=== PATIENT | male | born 1955 | race African-American/Black ===

== ENCOUNTER 2016-10-12 15:41 | Inpatient (IN) | payer OTHER ==
[2016-10-12 17:56] VITALS: BMI 30.8
--- NOTE | 2016-10-12 19:38 | HP ---
Admission ROS [facility] Chief Complaint: SEEKING REHAB SERVICES FOR ALCOHOL DEPENDENCE Allergies/Adverse Reactions: Allergies Allergy/AdvReac Type Severity Reaction Status Date / Time No Known Allergies Allergy Verified 10/12/16 18:31 History of Present Illness: 61 Y.O. MAN WITH A HISTORY OF ALCOHOL DEPENDENCE IS HERE SEEKING REHAB SERVICES. HE COMPLETED DETOX TODAY AT [facility]. HE REPORTS HE DOES NOT HAVE A SIGNIFICANT PERIOD OF SOBRIETY. Exam Limitations: No Limitations - Ebola screening Have you traveled outside of the country in the last 21 days: No Have you had contact with anyone from an Ebola affected area: No Have you been sick,other than usual withdrawal symptoms: No Do you have a fever: No - Review of Systems Constitutional: Loss of Appetite, Night Sweats EENT: reports: Blurred Vision Respiratory: reports: No Symptoms reported Cardiac: reports: No Symptoms Reported GI: reports: No Symptoms Reported : reports: No Symptoms Reported Musculoskeletal: reports: Back Pain Integumentary: reports: No Symptoms Reported Neuro: reports: Seizure (ETOH RELATED IN 2009) Endocrine: reports: No Symptoms Reported Hematology: reports: Other (SICKLE CELL TRAIT) Psychiatric: reports: Judgement Intact, Mood/Affect Appropiate Other Systems: Reviewed and Negative Patient History - Patient Medical History Hx Anemia: No Hx Asthma: No Hx Chronic Obstructive Pulmonary Disease (COPD): No Hx Cancer: No Hx Cardiac Disorders: No Hx Congestive Heart Failure: No Hx Hypertension: Yes Hx Hypercholesterolemia: No Hx Pacemaker: No HX Cerebrovascular Accident: No Hx Seizures: Yes (ETOH RELATED-2009) Hx Dementia: No Hx Diabetes: Yes (TYPE 2) Hx Gastrointestinal Disorders: No Hx Liver Disease: No Hx Genitourinary Disorders: No Hx Sexually Transmitted Disorders: No Hx Renal Disease (ESRD): No Hx Thyroid Disease: No Hx Human Immunodeficiency Virus (HIV): No (NEGATIVE HX 2013) Hx Hepatitis C: No Hx Depression: Yes Hx Suicide Attempt: No Hx Bipolar Disorder: No Hx Schizophrenia: No - Patient Surgical History Past Surgical History: No Hx Neurologic Surgery: No Hx Cataract Extraction: No Hx Cardiac Surgery: No Hx Lung Surgery: No Hx Breast Surgery: No Hx Breast Biopsy: No Hx Abdominal Surgery: No Hx Appendectomy: No Hx Cholecystectomy: No Hx Genitourinary Surgery: No Hx Section: No Hx Orthopedic Surgery: No Anesthesia Reaction: No - PPD History Documented Results: Positive w/o proof PPD to be Administered?: No - Reproductive History Patient is a Female of Child Bearing Age (11 -55 yrs old): No - Smoking Cessation Smoking history: Current every day smoker Have you smoked in the past 12 months: Yes Aproximately how many cigarettes per day: 3 Cigars Per Day: 0 Hx Chewing Tobacco Use: No Initiated information on smoking cessation: Yes 'Breaking Loose' booklet given: 10/12/16 - Substance & Tx. History Hx Alcohol Use: Yes Hx Substance Use: No Substance Use Type: Alcohol Hx Substance Use Treatment: Yes (COMPLETED DETOX AT OTHER FACILITY 09/2016; LAST REHAB WAS HERE IN 01/2016) - Substances Abused Alcohol Route: Oral Frequency: Daily Amount used: 2 PINTS OF LIQUOR AND 6 PACK OF BEER Age of first use: 13 Date of Last Use: 10/07/16 Family Disease History - Family Disease History Family Disease History: Other: Father (alcohol,), Mother (HTN), Sister ( alcohol) Admission Physical Exam [facility] - Vital Signs Vital Signs: Vital Signs - 24 hr 10/12/16 17:54 Temperature 98.2 F Pulse Rate 86 Respiratory 20 Rate Blood Pressure 141/73 - Physical General Appearance: Yes: Sweating, Anxious HEENTM: Yes: Normocephalic, Normal Voice Respiratory: Yes: Chest Non-Tender, Lungs Clear, Normal Breath Sounds, No Respiratory Distress, No Accessory Muscle Use Neck: Yes: No masses,lesions,Nodules, Trachea in good position Breast: Yes: Breast Exam Deferred Cardiology: Yes: Regular Rhythm, Regular Rate Abdominal: Yes: Non Tender, Flat, Soft Genitourinary: Yes: Other (NO COMPLAINTS REPORTED) Back: Yes: Normal Inspection Musculoskeletal: Yes: Gait Steady Extremities: Yes: Normal Inspection, Normal Range of Motion, Non-Tender Neurological: Yes: Alert, Normal Mood/Affect, Normal Response Integumentary: Yes: Normal Color, Dry, Warm Lymphatic: Yes: Within Normal Limits - Diagnostic (1) Seizure Current Visit: Yes Status: Chronic (2) Diabetes mellitus Current Visit: Yes Status: Chronic Qualifiers: Diabetes mellitus type: type 2 Diabetes mellitus complication status: without complication Diabetes mellitus building and grounds supervisor insulin use: without building and grounds supervisor use Qualified Code(s): E11.9 - Type 2 diabetes mellitus without complications (3) Nicotine dependence Current Visit: Yes Status: Chronic Qualifiers: (4) Alcohol dependence with uncomplicated withdrawal Current Visit: Yes Status: Chronic (5) History of positive PPD Current Visit: Yes Status: Chronic Cleared for Admission [facility] - Detox or Rehab [facility] Level of Care: Observation Bed Claeared for Rehab Admission: Yes [facility] Breath Alcohol Content Breath Alcohol Content: 0 Urine Drug Screen - Results Drug Screen Negative: No Urine Drug Screen Results: BZO-Benzodiazepines, TCA-Tricyclic Antidepress
[2016-10-12] MEDS ORDERED: hydrOXYzine PAMOATE 50 MG CAPSULE (FP) PO PRN (19:59)
[2016-10-12] MEDS ORDERED: diphenhydrAMINE HCL 50 MG CAPSULE PO PRN (19:59)
[2016-10-12] MEDS ORDERED: ACETAMINOPHEN 325 MG TABLET (FP) PO PRN (19:59)
[2016-10-12] MEDS ORDERED: MENTHOL/PHENOL 1 EACH UD MM PRN (19:59)
[2016-10-12] MEDS ORDERED: guaiFENesin/D-METHORPHAN HB 10 ML UNIT-DOSE CUPS PO PRN (19:59)
[2016-10-12] MEDS ORDERED: LOPERAMIDE HCL 2 MG CAPSULE PO PRN (19:59)
[2016-10-12] MEDS ORDERED: MAGNESIUM CITRATE 300 ML BOTTLE PO PRN (19:59)
[2016-10-12] MEDS ORDERED: MAGNESIUM HYDROX 2400MG/30ML ORAL SUSPENSION 30 ML CUP PO PRN (19:59)
[2016-10-12] MEDS ORDERED: P-EPHED 60MG/TRIPROLIDI 2.5MG TABLET PO PRN (19:59)
[2016-10-12] MEDS ORDERED: IBUPROFEN 400 MG TABLET (FP) PO PRN (19:59)
[2016-10-12] MEDS: THIAMINE HCL 100 MG TABLET (FP) PO SCH (21:32)
[2016-10-12 22:59] LABS: URINE APPEARANCE CLEAR; URINE BILIRUBIN NEGATIVE (NEGATIVE); URINE BLOOD NEGATIVE (NEGATIVE); URINE COLOR YELLOW; URINE GLUCOSE (UA) NEGATIVE (NEGATIVE); URINE KETONE NEGATIVE (NEGATIVE); URINE NITRITE NEGATIVE (NEGATIVE); URINE PROTEIN NEGATIVE (NEGATIVE); URINE UROBILINOGEN NEGATIVE mg/dL (0.2-1.0)
[2016-10-12 23:12] LABS: URINE LEUK ESTERASE TRACE (NEGATIVE)
[2016-10-12 23:22] LABS: URINE MUCUS RARE; URINE RBC 2 /hpf (0-3); URINE WBC 8 /hpf (3-5)
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
[2016-10-13] MEDS: metFORMIN HCL 500 MG TABLET (FP) PO SCH ×2 (07:04→16:49)
[2016-10-13] MEDS: amLODIPine BESYLATE 5 MG TABLET (FP) PO SCH (09:50)
[2016-10-13] MEDS: PRENATAL VITAMINS W/ FOLIC ACID TABLET (FP) PO SCH (09:50)
[2016-10-13 15:23] LABS: MCH 23.2 pg (25.7-33.7); MCHC 31.1 g/dl (32.0-35.9); MEAN CELL VOLUME 74.8 fl (80-96); MEAN PLT VOLUME 9.1 fl (7.5-11.1); PLATELET COUNT 315 K/MM3 (134-434); WHITE BLOOD COUNT 6.1 K/mm3 (4.0-10.0)
[2016-10-13 15:27] LABS: ALBUMIN 4.1 g/dl (3.4-5.0); ANION GAP 9 (8-16); CALCIUM 9.9 mg/dL (8.5-10.1); CO2 28 mmol/L (21-32); CREATININE 1.1 mg/dL (0.7-1.3); GLUCOSE,RANDOM 136 mg/dL (74-106); SGOT/AST 24 U/L (15-37); SGPT/ALT 28 U/L (12-78)
[2016-10-13 15:29] LABS: ALK PHOS 76 U/L (45-117); BILIRUBIN,TOTAL 0.4 mg/dL (0.2-1.0); TOT PROT 8.1 g/dl (6.4-8.2)
[2016-10-13] MEDS: THIAMINE HCL 100 MG TABLET (FP) PO SCH (21:20)
[2016-10-13] MEDS: diphenhydrAMINE HCL 50 MG CAPSULE PO SCH (21:21)
[2016-10-14] MEDS: metFORMIN HCL 500 MG TABLET (FP) PO SCH ×2 (06:12→17:00)
[2016-10-14] MEDS: PRENATAL VITAMINS W/ FOLIC ACID TABLET (FP) PO SCH (09:39)
[2016-10-14] MEDS: LISINOPRIL 5 MG TABLET (FP) PO SCH (09:40)
[2016-10-14] MEDS: amLODIPine BESYLATE 5 MG TABLET (FP) PO SCH (09:40)
--- NOTE | 2016-10-14 16:39 | EKG ---
Test Reason : Blood Pressure : / mmHG Vent. Rate : 082 BPM Atrial Rate : 082 BPM P-R Int : 162 ms QRS Dur : 096 ms QT Int : 366 ms P-R-T Axes : 025 -21 014 degrees QTc Int : 427 ms NORMAL SINUS RHYTHM INCOMPLETE RIGHT BUNDLE BRANCH BLOCK MODERATE VOLTAGE CRITERIA FOR LVH, MAY BE NORMAL VARIANT NONSPECIFIC T WAVE ABNORMALITY ABNORMAL ECG WHEN COMPARED WITH ECG OF 28-JAN-2016 17:17, CRITERIA FOR SEPTAL INFARCT ARE NO LONGER PRESENT NONSPECIFIC T WAVE ABNORMALITY NOW EVIDENT IN LATERAL LEADS Confirmed by SHIRLEY PINON MD ([id number]) on 10/14/2016 4:39:50 PM Referred By: Confirmed By:SHIRLEY PINON MD
[2016-10-14] MEDS: MAG HYDROX/AL HYDROX/SIMETH 30 ML UNIT-DOSE CUP PO PRN (18:42)
[2016-10-14] MEDS: THIAMINE HCL 100 MG TABLET (FP) PO SCH (22:23)
[2016-10-14] MEDS: diphenhydrAMINE HCL 50 MG CAPSULE PO SCH (22:23)
[2016-10-15] MEDS: metFORMIN HCL 500 MG TABLET (FP) PO SCH ×2 (05:59→16:55)
[2016-10-15] MEDS: PRENATAL VITAMINS W/ FOLIC ACID TABLET (FP) PO SCH (09:34)
[2016-10-15] MEDS: LISINOPRIL 5 MG TABLET (FP) PO SCH (09:34)
[2016-10-15] MEDS: amLODIPine BESYLATE 5 MG TABLET (FP) PO SCH (09:34)
[2016-10-15] MEDS: THIAMINE HCL 100 MG TABLET (FP) PO SCH (21:12)
[2016-10-15] MEDS: diphenhydrAMINE HCL 50 MG CAPSULE PO SCH (21:12)
[2016-10-15] MEDS: MAG HYDROX/AL HYDROX/SIMETH 30 ML UNIT-DOSE CUP PO PRN (23:13)
[2016-10-16] MEDS: metFORMIN HCL 500 MG TABLET (FP) PO SCH ×2 (06:31→16:46)
[2016-10-16] MEDS: amLODIPine BESYLATE 5 MG TABLET (FP) PO SCH (09:40)
[2016-10-16] MEDS: PRENATAL VITAMINS W/ FOLIC ACID TABLET (FP) PO SCH (09:40)
[2016-10-16] MEDS: LISINOPRIL 5 MG TABLET (FP) PO SCH (09:40)
[2016-10-16] MEDS: THIAMINE HCL 100 MG TABLET (FP) PO SCH (21:24)
[2016-10-16] MEDS: diphenhydrAMINE HCL 50 MG CAPSULE PO SCH (21:24)
[2016-10-17] MEDS: metFORMIN HCL 500 MG TABLET (FP) PO SCH ×2 (07:03→17:00)
[2016-10-17] MEDS: amLODIPine BESYLATE 5 MG TABLET (FP) PO SCH (09:34)
[2016-10-17] MEDS: LISINOPRIL 5 MG TABLET (FP) PO SCH (09:34)
[2016-10-17] MEDS: PRENATAL VITAMINS W/ FOLIC ACID TABLET (FP) PO SCH (09:34)
[2016-10-17] MEDS: diphenhydrAMINE HCL 50 MG CAPSULE PO SCH (21:14)
[2016-10-17] MEDS: THIAMINE HCL 100 MG TABLET (FP) PO SCH (21:14)
[2016-10-18] MEDS: metFORMIN HCL 500 MG TABLET (FP) PO SCH ×2 (06:13→16:59)
[2016-10-18] MEDS: LISINOPRIL 5 MG TABLET (FP) PO SCH (09:26)
[2016-10-18] MEDS: PRENATAL VITAMINS W/ FOLIC ACID TABLET (FP) PO SCH (09:26)
[2016-10-18] MEDS: amLODIPine BESYLATE 5 MG TABLET (FP) PO SCH (09:26)
[2016-10-18] MEDS: diphenhydrAMINE HCL 50 MG CAPSULE PO SCH (21:30)
[2016-10-18] MEDS: THIAMINE HCL 100 MG TABLET (FP) PO SCH (21:30)
[2016-10-19] MEDS: metFORMIN HCL 500 MG TABLET (FP) PO SCH ×2 (06:16→17:20)
[2016-10-19] MEDS: amLODIPine BESYLATE 5 MG TABLET (FP) PO SCH (09:46)
[2016-10-19] MEDS: PRENATAL VITAMINS W/ FOLIC ACID TABLET (FP) PO SCH (09:46)
[2016-10-19] MEDS: LISINOPRIL 5 MG TABLET (FP) PO SCH (09:46)
[2016-10-19] MEDS: diphenhydrAMINE HCL 50 MG CAPSULE PO SCH (21:41)
[2016-10-19] MEDS: THIAMINE HCL 100 MG TABLET (FP) PO SCH (21:41)
[2016-10-20] MEDS: metFORMIN HCL 500 MG TABLET (FP) PO SCH ×2 (07:12→16:55)
[2016-10-20] MEDS: PRENATAL VITAMINS W/ FOLIC ACID TABLET (FP) PO SCH (09:45)
[2016-10-20] MEDS: amLODIPine BESYLATE 5 MG TABLET (FP) PO SCH (09:45)
[2016-10-20] MEDS: LISINOPRIL 5 MG TABLET (FP) PO SCH (09:45)
[2016-10-20] MEDS: MAG HYDROX/AL HYDROX/SIMETH 30 ML UNIT-DOSE CUP PO PRN (12:03)
[2016-10-20] MEDS: diphenhydrAMINE HCL 50 MG CAPSULE PO SCH (21:49)
[2016-10-20] MEDS: THIAMINE HCL 100 MG TABLET (FP) PO SCH (21:49)
[2016-10-21] MEDS: metFORMIN HCL 500 MG TABLET (FP) PO SCH ×2 (07:43→16:55)
[2016-10-21] MEDS: amLODIPine BESYLATE 5 MG TABLET (FP) PO SCH (09:35)
[2016-10-21] MEDS: LISINOPRIL 5 MG TABLET (FP) PO SCH (09:35)
[2016-10-21] MEDS: PRENATAL VITAMINS W/ FOLIC ACID TABLET (FP) PO SCH (09:35)
[2016-10-21] MEDS: THIAMINE HCL 100 MG TABLET (FP) PO SCH (21:23)
[2016-10-21] MEDS: diphenhydrAMINE HCL 50 MG CAPSULE PO SCH (21:23)
[2016-10-22] MEDS: metFORMIN HCL 500 MG TABLET (FP) PO SCH ×2 (06:39→17:10)
[2016-10-22] MEDS: LISINOPRIL 5 MG TABLET (FP) PO SCH (10:28)
[2016-10-22] MEDS: PRENATAL VITAMINS W/ FOLIC ACID TABLET (FP) PO SCH (10:28)
[2016-10-22] MEDS: amLODIPine BESYLATE 5 MG TABLET (FP) PO SCH (10:28)
[2016-10-22] MEDS: THIAMINE HCL 100 MG TABLET (FP) PO SCH (22:04)
[2016-10-22] MEDS: diphenhydrAMINE HCL 50 MG CAPSULE PO SCH (22:04)
[2016-10-23] MEDS: metFORMIN HCL 500 MG TABLET (FP) PO SCH ×2 (06:49→17:28)
[2016-10-23] MEDS: LISINOPRIL 5 MG TABLET (FP) PO SCH (09:55)
[2016-10-23] MEDS: PRENATAL VITAMINS W/ FOLIC ACID TABLET (FP) PO SCH (09:55)
[2016-10-23] MEDS: amLODIPine BESYLATE 5 MG TABLET (FP) PO SCH (09:55)
[2016-10-23] MEDS: THIAMINE HCL 100 MG TABLET (FP) PO SCH (22:00)
[2016-10-23] MEDS: diphenhydrAMINE HCL 50 MG CAPSULE PO SCH (22:50)
[2016-10-24] MEDS: metFORMIN HCL 500 MG TABLET (FP) PO SCH ×2 (06:07→17:34)
[2016-10-24] MEDS: LISINOPRIL 5 MG TABLET (FP) PO SCH (09:36)
[2016-10-24] MEDS: PRENATAL VITAMINS W/ FOLIC ACID TABLET (FP) PO SCH (09:36)
[2016-10-24] MEDS: amLODIPine BESYLATE 5 MG TABLET (FP) PO SCH (09:36)
[2016-10-24] MEDS: diphenhydrAMINE HCL 50 MG CAPSULE PO SCH (22:36)
[2016-10-24] MEDS: THIAMINE HCL 100 MG TABLET (FP) PO SCH (22:37)
[2016-10-25] MEDS: metFORMIN HCL 500 MG TABLET (FP) PO SCH ×2 (07:37→16:48)
[2016-10-25] MEDS: PRENATAL VITAMINS W/ FOLIC ACID TABLET (FP) PO SCH (09:47)
[2016-10-25] MEDS: LISINOPRIL 5 MG TABLET (FP) PO SCH (09:47)
[2016-10-25] MEDS: amLODIPine BESYLATE 5 MG TABLET (FP) PO SCH (09:47)
[2016-10-25] MEDS: diphenhydrAMINE HCL 50 MG CAPSULE PO SCH (21:24)
[2016-10-25] MEDS: THIAMINE HCL 100 MG TABLET (FP) PO SCH (21:24)
[2016-10-26] MEDS: metFORMIN HCL 500 MG TABLET (FP) PO SCH ×2 (06:57→16:58)
--- NOTE | 2016-10-26 09:42 | PN ---
Psychiatric Progress Note Vital Signs: Vital Signs Period Temp Pulse Resp BP Sys/Green Pulse Ox Last 24 Hr 98.5 F 93-100 18-20 141-148/74-86 Current Medications: Active Medications Generic Name Dose Route Start Last Admin Trade Name Freq PRN Reason Stop Dose Admin Acetaminophen 650 mg 10/12/16 19:59 Tylenol - PO Q4H PRN PAIN Al Hydroxide/Mg Hydroxide 30 ml 10/12/16 19:59 10/20/16 12:03 Mylanta Oral Suspension - PO 30 ml Q6H PRN Administration DYSPEPSIA Amlodipine Besylate 5 mg 10/13/16 10:00 10/25/16 09:47 Norvasc - PO 5 mg DAILY MY Administration Diphenhydramine HCl 100 mg 10/13/16 22:00 10/25/16 21:24 Benadryl - PO 100 mg HS MY Administration Eucalyptus/Menthol/Phenol/Sorbitol 1 each 10/12/16 19:59 Cepastat Lozenge - MM Q4H PRN SORE THROAT Guaifenesin 10 ml 10/12/16 19:59 Robitussin Dm - PO Q6H PRN COUGH Hydroxyzine Pamoate 50 mg 10/12/16 19:59 Vistaril - PO Q4H PRN AGITATION Ibuprofen 400 mg 10/12/16 19:59 10/14/16 09:42 Motrin - PO 400 mg Q6H PRN Administration SEVERE PAIN Lisinopril 5 mg 10/14/16 10:00 10/25/16 09:47 Prinivil PO 5 mg DAILY MY Administration Loperamide HCl 4 mg 10/12/16 19:59 Imodium - PO Q6H PRN DIARRHEA Magnesium Citrate 300 ml 10/12/16 19:59 Citroma - PO Q48H PRN CONSTIPATION Magnesium Hydroxide 30 ml 10/12/16 19:59 Milk Of Magnesia - PO DAILY PRN CONSTIPATION Metformin HCl 500 mg 10/13/16 07:00 10/26/16 06:57 Glucophage - PO 500 mg BID@0700,1630 MY Administration Multivit/Folic Acid/Iron 1 tab 10/13/16 10:00 10/25/16 09:47 Vitamins (Sjr) - PO 1 tab DAILY MY Administration Pseudoephedrine/Triprolidine 1 combo 10/12/16 19:59 Actifed - PO TID PRN NASAL CONGESTION Thiamine HCl 100 mg 10/12/16 22:00 10/25/16 21:24 Vitamin B1 - PO 100 mg HS MY Administration Psychiatric Treatment Plan - Problem List (1) Alcohol dependence Current Visit: No (2) Nicotine dependence Current Visit: Yes Qualifiers: (3) Substance induced mood disorder Current Visit: Yes (4) Substance-induced sleep disorder Current Visit: Yes (5) Diabetes mellitus Current Visit: Yes Qualifiers: Diabetes mellitus type: type 2 Diabetes mellitus complication status: without complication Diabetes mellitus penitentiary insulin use: without penitentiary use Qualified Code(s): E11.9 - Type 2 diabetes mellitus without complications (6) History of positive PPD Current Visit: Yes (7) Gout attack Current Visit: No (8) Essential (primary) hypertension Current Visit: No Initial treatment plan: t
[2016-10-26] MEDS: amLODIPine BESYLATE 5 MG TABLET (FP) PO SCH (10:00)
[2016-10-26] MEDS: LISINOPRIL 5 MG TABLET (FP) PO SCH (10:00)
[2016-10-26] MEDS: PRENATAL VITAMINS W/ FOLIC ACID TABLET (FP) PO SCH (10:00)
[2016-10-26] MEDS: MAG HYDROX/AL HYDROX/SIMETH 30 ML UNIT-DOSE CUP PO PRN (16:59)
[2016-10-26] MEDS: diphenhydrAMINE HCL 50 MG CAPSULE PO SCH (21:43)
[2016-10-26] MEDS: THIAMINE HCL 100 MG TABLET (FP) PO SCH (21:43)
[2016-10-27] MEDS: metFORMIN HCL 500 MG TABLET (FP) PO SCH ×2 (07:42→17:03)
[2016-10-27] MEDS ORDERED: PT OWN MED DRAWER 7, Y5N ONE (09:08)
[2016-10-27] MEDS: amLODIPine BESYLATE 5 MG TABLET (FP) PO SCH (10:03)
[2016-10-27] MEDS: PRENATAL VITAMINS W/ FOLIC ACID TABLET (FP) PO SCH (10:03)
[2016-10-27] MEDS: LISINOPRIL 5 MG TABLET (FP) PO SCH (10:03)
[2016-10-27] MEDS: NALTREXONE HCL 50 MG TABLET PO SCH (13:05)
--- NOTE | 2016-10-27 13:35 | PN ---
Psychiatric Progress Note Vital Signs: Vital Signs Period Temp Pulse Resp BP Sys/Green Pulse Ox Last 24 Hr 97.7 F 92-94 20-20 136-157/78-79 Date of Session: 10/27/16 Chief Complaint:: Medication management HPI: Patient addressing Alcohol Dependence comorbid with Nicotine Dependence, Substance-Induced Mood Disorder and Substance-Induced Sleep Disorder ROS: DM, HTN ans +PPD Current Medications: Active Medications Generic Name Dose Route Start Last Admin Trade Name Freq PRN Reason Stop Dose Admin Acetaminophen 650 mg 10/12/16 19:59 Tylenol - PO Q4H PRN PAIN Al Hydroxide/Mg Hydroxide 30 ml 10/12/16 19:59 10/26/16 16:59 Mylanta Oral Suspension - PO 30 ml Q6H PRN Administration DYSPEPSIA Amlodipine Besylate 5 mg 10/13/16 10:00 10/27/16 10:03 Norvasc - PO 5 mg DAILY MY Administration Diphenhydramine HCl 100 mg 10/13/16 22:00 10/26/16 21:43 Benadryl - PO 100 mg HS MY Administration Eucalyptus/Menthol/Phenol/Sorbitol 1 each 10/12/16 19:59 Cepastat Lozenge - MM Q4H PRN SORE THROAT Guaifenesin 10 ml 10/12/16 19:59 Robitussin Dm - PO Q6H PRN COUGH Hydroxyzine Pamoate 50 mg 10/12/16 19:59 Vistaril - PO Q4H PRN AGITATION Ibuprofen 400 mg 10/12/16 19:59 10/14/16 09:42 Motrin - PO 400 mg Q6H PRN Administration SEVERE PAIN Lisinopril 5 mg 10/14/16 10:00 10/27/16 10:03 Prinivil PO 5 mg DAILY MY Administration Loperamide HCl 4 mg 10/12/16 19:59 Imodium - PO Q6H PRN DIARRHEA Magnesium Citrate 300 ml 10/12/16 19:59 Citroma - PO Q48H PRN CONSTIPATION Magnesium Hydroxide 30 ml 10/12/16 19:59 Milk Of Magnesia - PO DAILY PRN CONSTIPATION Metformin HCl 500 mg 10/13/16 07:00 10/27/16 07:42 Glucophage - PO 500 mg BID@0700,1630 MY Administration Naltrexone HCl 50 mg 10/27/16 12:45 10/27/16 13:05 Revia - PO 50 mg DAILY MY Administration Multivit/Folic Acid/Iron 1 tab 10/13/16 10:00 10/27/16 10:03 Vitamins (Sjr) - PO Not Given DAILY MY Pseudoephedrine/Triprolidine 1 combo 10/12/16 19:59 Actifed - PO TID PRN NASAL CONGESTION Thiamine HCl 100 mg 10/12/16 22:00 10/26/16 21:43 Vitamin B1 - PO 100 mg HS MY Administration Current Side Effect: No Lab tests ordered: Yes Lab tests reviewed: Yes Provider note:: Patient requests medication management to address craving for alcohol. The use of Naltrexone was that purpose as well as its adverse-effects were discussed with him. He agreed to try it. He was given a brochure with information containing information regarding use of Naltrxone for opoid and alcohol craving Total face to face time:: 25 Mental Status Exam - Mental Status Exam Alert and Oriented to: Time, Place, Person Cognitive Function: Fair Mood: Hopeful, Euthymic Affect: Appropriate Patient Behavior: Cooperative Speech Pattern: Clear Voice Loudness: Normal Thought Process: Intact, Goal Oriented Thought Disorder: Not Present Hallucinations: Denies Suicidal Ideation: Denies Insight/Judgement: Fair Sleep: Poorly Appetite: Good Muscle strength/Tone: Normal Gait/Station: Normal Psychiatric Treatment Plan - Problem List (1) Alcohol dependence Current Visit: No (2) Nicotine dependence Current Visit: Yes Qualifiers: (3) Substance induced mood disorder Current Visit: Yes (4) Substance-induced sleep disorder Current Visit: Yes (5) Diabetes mellitus Current Visit: Yes Qualifiers: Diabetes mellitus type: type 2 Diabetes mellitus complication status: without complication Diabetes mellitus group home insulin use: without group home use Qualified Code(s): E11.9 - Type 2 diabetes mellitus without complications (6) History of positive PPD Current Visit: Yes (7) Gout attack Current Visit: No (8) Essential (primary) hypertension Current Visit: No Initial treatment plan: 1) Start Naltrexone 50 mg po daily. 2) Monitor progress
[2016-10-27] MEDS: diphenhydrAMINE HCL 50 MG CAPSULE PO SCH (21:18)
[2016-10-27] MEDS: THIAMINE HCL 100 MG TABLET (FP) PO SCH (21:18)
[2016-10-28] MEDS: metFORMIN HCL 500 MG TABLET (FP) PO SCH ×2 (06:13→16:23)
[2016-10-28] MEDS: amLODIPine BESYLATE 5 MG TABLET (FP) PO SCH (10:01)
[2016-10-28] MEDS: NALTREXONE HCL 50 MG TABLET PO SCH (10:01)
[2016-10-28] MEDS: LISINOPRIL 5 MG TABLET (FP) PO SCH (10:01)
[2016-10-28] MEDS: PRENATAL VITAMINS W/ FOLIC ACID TABLET (FP) PO SCH (10:02)
[2016-10-28] MEDS: diphenhydrAMINE HCL 50 MG CAPSULE PO SCH (21:43)
[2016-10-28] MEDS: THIAMINE HCL 100 MG TABLET (FP) PO SCH (21:43)
[2016-10-29] MEDS: metFORMIN HCL 500 MG TABLET (FP) PO SCH ×2 (06:54→16:52)
[2016-10-29] MEDS: PRENATAL VITAMINS W/ FOLIC ACID TABLET (FP) PO SCH (09:32)
[2016-10-29] MEDS: amLODIPine BESYLATE 5 MG TABLET (FP) PO SCH (09:32)
[2016-10-29] MEDS: LISINOPRIL 5 MG TABLET (FP) PO SCH (09:32)
[2016-10-29] MEDS: NALTREXONE HCL 50 MG TABLET PO SCH (09:32)
[2016-10-29] MEDS: THIAMINE HCL 100 MG TABLET (FP) PO SCH (21:26)
[2016-10-29] MEDS: diphenhydrAMINE HCL 50 MG CAPSULE PO SCH (21:26)
[2016-10-30] MEDS: metFORMIN HCL 500 MG TABLET (FP) PO SCH ×2 (06:57→16:53)
[2016-10-30] MEDS: LISINOPRIL 5 MG TABLET (FP) PO SCH (09:42)
[2016-10-30] MEDS: PRENATAL VITAMINS W/ FOLIC ACID TABLET (FP) PO SCH (09:42)
[2016-10-30] MEDS: amLODIPine BESYLATE 5 MG TABLET (FP) PO SCH (09:42)
[2016-10-30] MEDS: NALTREXONE HCL 50 MG TABLET PO SCH (09:42)
--- NOTE | 2016-10-30 17:11 | PN ---
Psychiatric Progress Note Vital Signs: Vital Signs Period Temp Pulse Resp BP Sys/Green Pulse Ox Last 24 Hr 97.8 F-98.5 F 90-95 18-20 124-157/65-95 Date of Session: 10/30/16 Chief Complaint:: Follow up on medication management HPI: Patient addressing Alcohol Dependence comorbid with Nicotine Dependence, Substance-Induced Mood Disorder and Substance-Induced Sleep Disorder ROS: DM, HTN ans +PPD Current Medications: Active Medications Generic Name Dose Route Start Last Admin Trade Name Freq PRN Reason Stop Dose Admin Acetaminophen 650 mg 10/12/16 19:59 Tylenol - PO Q4H PRN PAIN Al Hydroxide/Mg Hydroxide 30 ml 10/12/16 19:59 10/26/16 16:59 Mylanta Oral Suspension - PO 30 ml Q6H PRN Administration DYSPEPSIA Amlodipine Besylate 5 mg 10/13/16 10:00 10/30/16 09:42 Norvasc - PO 5 mg DAILY MY Administration Diphenhydramine HCl 100 mg 10/13/16 22:00 10/29/16 21:26 Benadryl - PO 100 mg HS MY Administration Eucalyptus/Menthol/Phenol/Sorbitol 1 each 10/12/16 19:59 Cepastat Lozenge - MM Q4H PRN SORE THROAT Guaifenesin 10 ml 10/12/16 19:59 Robitussin Dm - PO Q6H PRN COUGH Hydroxyzine Pamoate 50 mg 10/12/16 19:59 Vistaril - PO Q4H PRN AGITATION Ibuprofen 400 mg 10/12/16 19:59 10/14/16 09:42 Motrin - PO 400 mg Q6H PRN Administration SEVERE PAIN Lisinopril 5 mg 10/14/16 10:00 10/30/16 09:42 Prinivil PO 5 mg DAILY MY Administration Loperamide HCl 4 mg 10/12/16 19:59 Imodium - PO Q6H PRN DIARRHEA Magnesium Citrate 300 ml 10/12/16 19:59 Citroma - PO Q48H PRN CONSTIPATION Magnesium Hydroxide 30 ml 10/12/16 19:59 Milk Of Magnesia - PO DAILY PRN CONSTIPATION Metformin HCl 500 mg 10/13/16 07:00 10/30/16 16:53 Glucophage - PO 500 mg BID@0700,1630 MY Administration Naltrexone HCl 50 mg 10/27/16 12:45 10/30/16 09:42 Revia - PO 50 mg DAILY MY Administration Multivit/Folic Acid/Iron 1 tab 10/13/16 10:00 10/30/16 09:42 Vitamins (Sjr) - PO 1 tab DAILY MY Administration Pseudoephedrine/Triprolidine 1 combo 10/12/16 19:59 Actifed - PO TID PRN NASAL CONGESTION Thiamine HCl 100 mg 10/12/16 22:00 10/29/16 21:26 Vitamin B1 - PO 100 mg HS MY Administration Current Side Effect: No Lab tests ordered: Yes Lab tests reviewed: Yes Provider note:: Patient was started on Naltrexone 50 mg po daily to address craving for alcohol. Reports doing well on med. Denies experiencing any adverse- effects Total face to face time:: 25 Mental Status Exam - Mental Status Exam Alert and Oriented to: Time, Place, Person Cognitive Function: Fair Patient Appearance: Well Groomed Mood: Hopeful, Euthymic Affect: Appropriate Patient Behavior: Cooperative Speech Pattern: Clear Voice Loudness: Normal Thought Process: Intact Thought Disorder: Not Present Hallucinations: Denies Suicidal Ideation: Denies Homicidal Ideation: Denies Insight/Judgement: Fair Sleep: Fair Appetite: Good Muscle strength/Tone: Normal Gait/Station: Normal Psychiatric Treatment Plan - Problem List (1) Alcohol dependence Current Visit: No (2) Nicotine dependence Current Visit: Yes Qualifiers: (3) Substance induced mood disorder Current Visit: Yes (4) Substance-induced sleep disorder Current Visit: Yes (5) Diabetes mellitus Current Visit: Yes Qualifiers: Diabetes mellitus type: type 2 Diabetes mellitus complication status: without complication Diabetes mellitus retirement insulin use: 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
[2016-10-30] MEDS: THIAMINE HCL 100 MG TABLET (FP) PO SCH (21:25)
[2016-10-30] MEDS: diphenhydrAMINE HCL 50 MG CAPSULE PO SCH (21:25)
[2016-10-31] MEDS: metFORMIN HCL 500 MG TABLET (FP) PO SCH ×2 (07:23→16:50)
[2016-10-31] MEDS: LISINOPRIL 5 MG TABLET (FP) PO SCH (10:08)
[2016-10-31] MEDS: NALTREXONE HCL 50 MG TABLET PO SCH (10:08)
[2016-10-31] MEDS: amLODIPine BESYLATE 5 MG TABLET (FP) PO SCH (10:09)
[2016-10-31] MEDS: PRENATAL VITAMINS W/ FOLIC ACID TABLET (FP) PO SCH (10:09)
[2016-10-31] MEDS: THIAMINE HCL 100 MG TABLET (FP) PO SCH (21:28)
[2016-10-31] MEDS: diphenhydrAMINE HCL 50 MG CAPSULE PO SCH (21:28)
[2016-11-01] MEDS: metFORMIN HCL 500 MG TABLET (FP) PO SCH (06:15)
--- NOTE | 2016-11-01 06:31 | PN ---
Psychiatric Progress Note Vital Signs: Vital Signs Period Temp Pulse Resp BP Sys/Green Pulse Ox Last 24 Hr 98.5 F 90-93 20-20 132-135/72-73 Date of Session: 11/01/16 Chief Complaint:: Discharge Note HPI: Patient addressing Alcohol Dependence comorbid with Nicotine Dependence, Substance-Induced Mood Disorder and Substance-Induced Sleep Disorder ROS: DM, HTN ans +PPD were medically managed Current Medications: Active Medications Generic Name Dose Route Start Last Admin Trade Name Freq PRN Reason Stop Dose Admin Acetaminophen 650 mg 10/12/16 19:59 Tylenol - PO Q4H PRN PAIN Al Hydroxide/Mg Hydroxide 30 ml 10/12/16 19:59 10/26/16 16:59 Mylanta Oral Suspension - PO 30 ml Q6H PRN Administration DYSPEPSIA Amlodipine Besylate 5 mg 10/13/16 10:00 10/31/16 10:09 Norvasc - PO 5 mg DAILY MY Administration Diphenhydramine HCl 100 mg 10/13/16 22:00 10/31/16 21:28 Benadryl - PO 100 mg HS MY Administration Eucalyptus/Menthol/Phenol/Sorbitol 1 each 10/12/16 19:59 Cepastat Lozenge - MM Q4H PRN SORE THROAT Guaifenesin 10 ml 10/12/16 19:59 Robitussin Dm - PO Q6H PRN COUGH Hydroxyzine Pamoate 50 mg 10/12/16 19:59 Vistaril - PO Q4H PRN AGITATION Ibuprofen 400 mg 10/12/16 19:59 10/14/16 09:42 Motrin - PO 400 mg Q6H PRN Administration SEVERE PAIN Lisinopril 5 mg 10/14/16 10:00 10/31/16 10:08 Prinivil PO 5 mg DAILY MY Administration Loperamide HCl 4 mg 10/12/16 19:59 Imodium - PO Q6H PRN DIARRHEA Magnesium Citrate 300 ml 10/12/16 19:59 Citroma - PO Q48H PRN CONSTIPATION Magnesium Hydroxide 30 ml 10/12/16 19:59 Milk Of Magnesia - PO DAILY PRN CONSTIPATION Metformin HCl 500 mg 10/13/16 07:00 11/01/16 06:15 Glucophage - PO 500 mg BID@0700,1630 MY Administration Naltrexone HCl 50 mg 10/27/16 12:45 08/06/17 10:08 Revia - PO 50 mg DAILY MY Administration Multivit/Folic Acid/Iron 1 tab 10/13/16 10:00 10/31/16 10:09 Vitamins (Sjr) - PO Not Given DAILY MY Pseudoephedrine/Triprolidine 1 combo 10/12/16 19:59 Actifed - PO TID PRN NASAL CONGESTION Thiamine HCl 100 mg 10/12/16 22:00 10/31/16 21:28 Vitamin B1 - PO 100 mg HS MY Administration Current Side Effect: No Lab tests ordered: Yes Lab tests reviewed: Yes Provider note:: Patient has completed this program today. He has met his treatment his goals and will continue to address his issues in outpatient at [facility]. Told documentation writer that from his participation in this program, he has learned the importance of establishing a sober support network in order to maintain abstinence. He responded well to Benadryl 100 mg po HS. Script for 30 days supply of that medication will be electronically transmitted to [facility] at [facility] [place] [id number]. He is stable for discharge on 11/01/16 Total face to face time:: 35 Mental Status Exam - Mental Status Exam Alert and Oriented to: Time, Place, Person Cognitive Function: Fair Mood: Hopeful, Euthymic Affect: Appropriate Patient Behavior: Cooperative Speech Pattern: Clear Voice Loudness: Normal Thought Process: Intact, Goal Oriented Thought Disorder: Not Present Hallucinations: Denies Suicidal Ideation: Denies Insight/Judgement: Fair Sleep: Fair Appetite: Good Muscle strength/Tone: Normal Gait/Station: Normal Psychiatric Treatment Plan - Problem List (2) Nicotine dependence Qualifiers: (5) Diabetes mellitus Qualifiers: Diabetes mellitus type: type 2 Diabetes mellitus complication status: without complication Diabetes mellitus shelter insulin use: without shelter use Qualified Code(s): E11.9 - Type 2 diabetes mellitus without complications (8) Essential (primary) hypertension Initial treatment plan: Patient will be discharged tomorrow and referred to [facility] for outpatient treatment
[2016-11-01 07:15] VITALS: TEMP 97.7
[2016-11-01 08:29] VITALS: BP 135/72; PULSE 99
[2016-11-01] MEDS: amLODIPine BESYLATE 5 MG TABLET (FP) PO SCH (09:01)
[2016-11-01] MEDS: LISINOPRIL 5 MG TABLET (FP) PO SCH (09:01)
[2016-11-01] MEDS: NALTREXONE HCL 50 MG TABLET PO SCH (09:01)
[2016-11-01] MEDS: PRENATAL VITAMINS W/ FOLIC ACID TABLET (FP) PO SCH (09:02)
== END 2016-11-01 09:15 | disposition home or self-care (01) | DRG 772 ==
LOC: YASAS 15:41 → Y3W 18:32
PROVIDERS: ADMIT Psychiatry & Neurology Psychiatry; ATTEND Psychiatry & Neurology Psychiatry
PROC: HZ42ZZZ Group Counseling for Substance Abuse Treatment, Cognitive-Behavioral (ICD-10-PCS; principal; 2016-10-12)
DX: F10.20 Alcohol dependence, uncomplicated (principal); F17.210 Nicotine dependence, cigarettes, uncomplicated; F19.24 Other psychoactive substance dependence with psychoactive substance-induced mood disorder; F19.282 Other psychoactive substance dependence with psychoactive substance-induced sleep disorder; E11.9 Type 2 diabetes mellitus without complications; I10 Essential (primary) hypertension; R76.11 Nonspecific reaction to tuberculin skin test without active tuberculosis; M10.9 Gout, unspecified; Z86.69 Personal history of other diseases of the nervous system and sense organs
CPT/HCPCS: 36415; 71020-TC; 80053; 81003; 81015; 85027; 86593; 93005; 93010

== ENCOUNTER 2018-10-24 14:35 | Inpatient (IN) | payer OTHER | END 2018-11-02 10:15 | disposition home or self-care (01) | LOC: Y5N 10-26 11:51 → YASAS 14:35 → Y5N 20:06 ==

== ENCOUNTER 2019-02-20 13:06 | Inpatient (IN) | payer OTHER ==
[2019-02-20 15:39] VITALS: BMI 31.9
--- NOTE | 2019-02-20 17:06 | HP ---
CIWA Score Nausea/Vomitin-No Nausea/No Vomiting Muscle Tremors: 4-Moderate,w/Arms Extend Anxiety: 0-No Anxiety, at Ease Agitation: 0-Normal Activity Paroxysmal Sweats: 1-Minimal Palms Moist Orientation: 1-Uncertain about Date Tacttile Disturbances: 0-None Auditory Disturbances: 0-None Visual Disturbances: 0-None Headache: 0-None Present CIWA-Ar Total Score: 6 - Admission Criteria OASAS Guidelines: Admission for Medically Managed Detox: Requires at least one of the followin. CIWA greater than 12 2. Seizures within the past 24 hours 3. Delirium tremens within the past 24 hours 4. Hallucinations within the past 24 hours 5. Acute intervention needed for co occurring medical disorder 6. Acute intervention needed for co occurring psychiatric disorder 7. Severe withdrawal that cannot be handled at a lower level of care (continued vomiting, continued diarrhea, abnormal vital signs) requiring intravenous medication and/or fluids 8. Admitting History and Physical - Smoking History Smoking history: Current every day smoker Have you smoked in the past 12 months: Yes Aproximately how many cigarettes per day: 3 - Alcohol/Substance Use Hx Alcohol Use: Yes Admission ROS S - HPI Allergies/Adverse Reactions: Allergies Allergy/AdvReac Type Severity Reaction Status Date / Time No Known Allergies Allergy Verified 02/20/19 15:32 History of Present Illness: pt here for rehab after completion of ETOH detox @ [facility], d/c today , has d/c paperwork indicating stay 02/12-02/19/19 . pt denies use of alcohol since d/c from facility . Exam Limitations: No Limitations - Ebola screening Have you traveled outside of the country in the last 21 days: No Have you had contact with anyone from an Ebola affected area: No Do you have a fever: No - Review of Systems Constitutional: No Symptoms Reported EENT: reports: No Symptoms Reported Respiratory: reports: No Symptoms reported Cardiac: reports: No Symptoms Reported GI: reports: No Symptoms Reported : reports: No Symptoms Reported Musculoskeletal: reports: Joint Pain (shoulder - right pain x several days , denies injuries " I have arthritis, I take Motrin ") Integumentary: reports: Other (zelda LE discoloration reports x many years .) Neuro: reports: No Symptoms reported Endocrine: reports: See HPI Psychiatric: reports: Orientated x3 Patient History - Patient Medical History Hx Anemia: No Hx Asthma: No Hx Chronic Obstructive Pulmonary Disease (COPD): No Hx Cancer: No Hx Cardiac Disorders: No Hx Congestive Heart Failure: No Hx Hypertension: Yes Hx Hypercholesterolemia: No Hx Pacemaker: No HX Cerebrovascular Accident: No Hx Seizures: Yes (No episode in over 7 years) Hx Dementia: No Hx Diabetes: Yes Hx Gastrointestinal Disorders: No Hx Liver Disease: No Hx Genitourinary Disorders: No Hx Sexually Transmitted Disorders: No Hx Renal Disease (ESRD): No Hx Thyroid Disease: No Hx Human Immunodeficiency Virus (HIV): No (NEGATIVE HX 2013) Hx Hepatitis C: No Hx Depression: No Hx Suicide Attempt: No Hx Bipolar Disorder: No Hx Schizophrenia: No - Patient Surgical History Past Surgical History: No Hx Neurologic Surgery: No Hx Cataract Extraction: No Hx Cardiac Surgery: No Hx Lung Surgery: No Hx Breast Surgery: No Hx Breast Biopsy: No Hx Abdominal Surgery: No Hx Appendectomy: No Hx Cholecystectomy: No Hx Genitourinary Surgery: No Hx Section: No Hx Orthopedic Surgery: No Anesthesia Reaction: No - Smoking Cessation Smoking history: Current every day smoker Have you smoked in the past 12 months: Yes Aproximately how many cigarettes per day: 3 Cigars Per Day: 0 Hx Chewing Tobacco Use: No Initiated information on smoking cessation: No - Substances abused Alcohol Substance route: Oral Frequency: Daily Amount used: 3 to 4 pints of vodka and 6 pack of 120z beer Age of first use: 13 Date of last use: 10/09/18 Marijuana/Hashish Substance route: Oral Frequency: 1-2 times per week Amount used: $30 Age of first use: 16 Date of last use: 09/24/18 Admission Physical Exam [facility] - Vital Signs Vital Signs: Vital Signs - 24 hr 02/20/19 15:30 Temperature 98.4 F Pulse Rate 111 H Respiratory 18 Rate Blood Pressure 197/95 H - Physical General Appearance: Yes: No Apparent Distress HEENTM: Yes: EOMI, Hearing grossly Normal, Normocephalic, Normal Voice, Other ( poor dentition, mnay missing teeth) Respiratory: Yes: Chest Non-Tender, Lungs Clear, Normal Breath Sounds, No Respiratory Distress, No Accessory Muscle Use Neck: Yes: No masses,lesions,Nodules, Trachea in good position Cardiology: Yes: Regular Rhythm, Regular Rate, S1, S2, Tachycardia Abdominal: Yes: Non Tender, Soft Extremities: Yes: Normal Range of Motion, Non-Tender, Tremors Neurological: Yes: Fully Oriented, Alert, Motor Strength 5/5 Integumentary: Yes: Warm - Diagnostic (1) Cannabis dependence Current Visit: Yes Status: Chronic (2) Alcohol dependence Current Visit: Yes Status: Chronic (3) Nicotine dependence Current Visit: Yes Status: Chronic Qualifiers: Nicotine product type: cigarettes Breathalyzer - Breathalyzer Breathalyzer: 0 Urine Drug Screen - Test Device Lot number: [id number] Expiration date: 10/25/20 - Control Is test valid?: Yes - Results Drug screen NEGATIVE: No Urine drug screen results: BZO-Benzodiazepines Inpatient Rehab Admission - Rehab Decision to Admit Inpatient rehab admission?: Yes - Initial Determination Are CD services needed?: Yes Free of communicable disease: Yes Not in need of hospitalization: Yes - Rehab Admission Criteria Previous failed treatment: No Poor recovery environment: No Comorbidities: No Lacks judgement: Yes Patient is meeting Inpatient Rehab admission criteria:: Yes
[2019-02-20] MEDS ORDERED: ACETAMINOPHEN 325 MG TABLET (FP) PO PRN (17:15)
[2019-02-20] MEDS ORDERED: LOPERAMIDE HCL 2 MG CAPSULE PO PRN (17:15)
[2019-02-20] MEDS ORDERED: MAG HYDROX/AL HYDROX/SIMETH 30 ML UNIT-DOSE CUP PO PRN (17:15)
[2019-02-20] MEDS ORDERED: MENTHOL/PHENOL 1 EACH UD MM PRN (17:15)
[2019-02-20] MEDS ORDERED: MAGNESIUM CITRATE 300 ML BOTTLE PO PRN (17:15)
[2019-02-20] MEDS ORDERED: MAGNESIUM HYDROX 2400MG/30ML ORAL SUSPENSION 30 ML CUP PO PRN (17:15)
[2019-02-20] MEDS ORDERED: P-EPHED 60MG/TRIPROLIDI 2.5MG TABLET PO PRN (17:15)
[2019-02-20] MEDS ORDERED: guaiFENesin 200 MG/10 ML 10 ML UNIT-DOSE CUPS PO PRN (17:15)
[2019-02-20] MEDS ORDERED: traZODone HCL 50 MG TABLET (FP) PO PRN (17:16)
[2019-02-20] MEDS ORDERED: METOPROLOL TARTRATE 25 MG TABLET (FP) PO ONE (18:00)
[2019-02-20] MEDS: metFORMIN HCL 500 MG TABLET (FP) PO SCH (18:35)
[2019-02-20] MEDS: ENALAPRIL MALEATE 10 MG TABLET (FP) PO SCH (21:46)
[2019-02-20] MEDS: THIAMINE HCL 100 MG TABLET (FP) PO SCH (21:46)
[2019-02-20] MEDS ORDERED: MELATONIN 5 MG TABLETS PO PRN (22:00)
[2019-02-21] MEDS: metFORMIN HCL 500 MG TABLET (FP) PO SCH ×2 (06:41→17:14)
[2019-02-21] MEDS: INSULIN SLIDING SCALE (NOVOLOG) 1 VIAL SQ SCH ×2 (06:42→17:14)
[2019-02-21 10:17] LABS: ALBUMIN 3.7 g/dl (3.4-5.0); BILIRUBIN,TOTAL 0.3 mg/dL (0.2-1); BLOOD UREA NITROGEN 23.1 mg/dL (7-18); CALCIUM 10.1 mg/dL (8.5-10.1); CREATININE 1.3 mg/dL (0.55-1.3); POTASSIUM 4.2 mmol/L (3.5-5.1)
[2019-02-21 10:36] LABS: HEMATOCRIT 34.5 % (35.4-49); HEMOGLOBIN 10.7 GM/dL (11.7-16.9); MCH 22.8 pg (25.7-33.7); MEAN CELL VOLUME 73.5 fl (80-96); MEAN PLT VOLUME 9.4 fl (7.5-11.1); PLATELET COUNT 295 K/MM3 (134-434); RBC 4.69 M/mm3 (4.00-5.60); WHITE BLOOD COUNT 6.9 K/mm3 (4.0-10.0)
[2019-02-21] MEDS: ENALAPRIL MALEATE 10 MG TABLET (FP) PO SCH ×2 (10:49→21:39)
[2019-02-21] MEDS: NIFEdipine E.R. 30 MG TABLET (FP) PO SCH (10:49)
[2019-02-21] MEDS: PRENATAL VITAMINS W/ FOLIC ACID TABLET (FP) PO SCH (10:49)
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
[2019-02-21 15:17] LABS: EPI CELLS 2.9 /HPF (0-5/HPF); HYALINE CASTS 9 /lpf (0-8); URINE APPEARANCE CLEAR; URINE BACTERIA 15.5 /hpf (NEGATIVE); URINE BILIRUBIN NEGATIVE (NEGATIVE); URINE COLOR YELLOW; URINE GLUCOSE (UA) TRACE (NEGATIVE); URINE KETONE NEGATIVE (NEGATIVE); URINE LEUK ESTERASE 1+ (NEGATIVE); URINE NITRITE NEGATIVE (NEGATIVE); URINE PROTEIN 2+ (NEGATIVE); URINE RBC 3 /hpf (0-4); URINE WBC 6 /hpf (0-5)
[2019-02-21] MEDS: traZODone HCL 100 MG TABLET (FP) PO SCH (21:38)
[2019-02-21] MEDS: THIAMINE HCL 100 MG TABLET (FP) PO SCH (21:39)
[2019-02-22] MEDS: metFORMIN HCL 500 MG TABLET (FP) PO SCH ×2 (06:57→16:53)
[2019-02-22] MEDS: INSULIN SLIDING SCALE (NOVOLOG) 1 VIAL SQ SCH ×2 (06:58→16:55)
[2019-02-22] MEDS: ENALAPRIL MALEATE 10 MG TABLET (FP) PO SCH ×2 (10:01→21:27)
[2019-02-22] MEDS: NIFEdipine E.R. 30 MG TABLET (FP) PO SCH (10:01)
[2019-02-22] MEDS: PRENATAL VITAMINS W/ FOLIC ACID TABLET (FP) PO SCH (10:01)
[2019-02-22] MEDS ORDERED: INSULIN (NOVOLOG) ASPART 100 UNITS/ML 10ML VIAL ONE (16:19)
[2019-02-22] MEDS: THIAMINE HCL 100 MG TABLET (FP) PO SCH (21:27)
[2019-02-22] MEDS: traZODone HCL 100 MG TABLET (FP) PO SCH (21:27)
[2019-02-23] MEDS: metFORMIN HCL 500 MG TABLET (FP) PO SCH ×2 (06:25→16:34)
[2019-02-23] MEDS ORDERED: INSULIN (NOVOLOG) ASPART 100 UNITS/ML 10ML VIAL ONE ×2 (06:28→16:34)
[2019-02-23] MEDS: INSULIN SLIDING SCALE (NOVOLOG) 1 VIAL SQ SCH ×2 (07:06→16:35)
[2019-02-23] MEDS: ENALAPRIL MALEATE 10 MG TABLET (FP) PO SCH ×2 (10:34→21:30)
[2019-02-23] MEDS: NIFEdipine E.R. 30 MG TABLET (FP) PO SCH (10:34)
[2019-02-23] MEDS: PRENATAL VITAMINS W/ FOLIC ACID TABLET (FP) PO SCH (10:34)
[2019-02-23] MEDS: THIAMINE HCL 100 MG TABLET (FP) PO SCH (21:30)
[2019-02-23] MEDS: traZODone HCL 100 MG TABLET (FP) PO SCH (21:30)
[2019-02-24] MEDS: INSULIN SLIDING SCALE (NOVOLOG) 1 VIAL SQ SCH ×2 (06:25→16:54)
[2019-02-24] MEDS: metFORMIN HCL 500 MG TABLET (FP) PO SCH ×2 (06:25→16:51)
[2019-02-24] MEDS: ENALAPRIL MALEATE 10 MG TABLET (FP) PO SCH ×2 (10:01→21:34)
[2019-02-24] MEDS: PRENATAL VITAMINS W/ FOLIC ACID TABLET (FP) PO SCH (10:01)
[2019-02-24] MEDS: NIFEdipine E.R. 30 MG TABLET (FP) PO SCH (10:01)
[2019-02-24] MEDS: traZODone HCL 100 MG TABLET (FP) PO SCH (21:35)
[2019-02-24] MEDS: THIAMINE HCL 100 MG TABLET (FP) PO SCH (21:35)
[2019-02-25] MEDS: metFORMIN HCL 500 MG TABLET (FP) PO SCH ×2 (06:23→16:37)
[2019-02-25] MEDS ORDERED: INSULIN (NOVOLOG) ASPART 100 UNITS/ML 10ML VIAL ONE (07:25)
[2019-02-25] MEDS: INSULIN SLIDING SCALE (NOVOLOG) 1 VIAL SQ SCH ×2 (07:53→16:39)
[2019-02-25] MEDS: NIFEdipine E.R. 30 MG TABLET (FP) PO SCH (10:14)
[2019-02-25] MEDS: ENALAPRIL MALEATE 10 MG TABLET (FP) PO SCH ×2 (10:14→21:23)
[2019-02-25] MEDS: PRENATAL VITAMINS W/ FOLIC ACID TABLET (FP) PO SCH (10:14)
[2019-02-25] MEDS: THIAMINE HCL 100 MG TABLET (FP) PO SCH (21:23)
[2019-02-25] MEDS: traZODone HCL 100 MG TABLET (FP) PO SCH (21:23)
[2019-02-26] MEDS: metFORMIN HCL 500 MG TABLET (FP) PO SCH ×2 (06:17→16:46)
[2019-02-26] MEDS ORDERED: INSULIN (NOVOLOG) ASPART 100 UNITS/ML 10ML VIAL ONE (06:18)
[2019-02-26] MEDS: INSULIN SLIDING SCALE (NOVOLOG) 1 VIAL SQ SCH ×2 (06:21→16:47)
[2019-02-26] MEDS: IBUPROFEN 400 MG TABLET (FP) PO PRN ×2 (09:03→15:18)
[2019-02-26] MEDS: PRENATAL VITAMINS W/ FOLIC ACID TABLET (FP) PO SCH (11:01)
[2019-02-26] MEDS: ENALAPRIL MALEATE 10 MG TABLET (FP) PO SCH ×2 (11:01→21:44)
[2019-02-26] MEDS: NIFEdipine E.R. 30 MG TABLET (FP) PO SCH (11:01)
--- NOTE | 2019-02-26 11:18 | PN ---
[facility] Progress Note Note: Pt is a 63 y/o male with a hx of LD admitted to rehab. Pt reports hx of Gout and states he has a flare up now on his right hand. Reports he takes Gout medicine when it flares up. However, pt has been prescribed colcrys 0.6 mg po daily in previous visits to [facility] CD treatment. Denies truama to hand. Vital Signs - 24 hr 02/25/19 02/26/19 02/26/19 12:08 00:30 03:30 Temperature Pulse Rate 97 H Respiratory 18 18 18 Rate Blood Pressure 157/79 02/26/19 07:01 Temperature 97.4 F L Pulse Rate 95 H Respiratory 18 Rate Blood Pressure 144/79 Laboratory Tests 02/20/19 02/21/19 02/21/19 18:34 06:40 07:00 WBC 6.9 RBC 4.69 Hgb 10.7 L Hct 34.5 L MCV 73.5 L MCH 22.8 L MCHC 31.0 L RDW 16.0 H Plt Count 295 D MPV 9.4 Sodium Potassium Chloride Carbon Dioxide Anion Gap BUN Creatinine Est GFR (CKD-EPI)AfAm Est GFR (CKD-EPI)NonAf POC Glucometer 248 199 Random Glucose Calcium Total Bilirubin AST ALT Alkaline Phosphatase Total Protein Albumin Urine Color Urine Appearance Urine pH Ur Specific [place] Urine Protein Urine Glucose (UA) Urine Ketones Urine Blood Urine Nitrite Urine Bilirubin Urine Urobilinogen Ur Leukocyte Esterase Urine WBC (Auto) Urine RBC (Auto) Urine Casts (Auto) U Epithel Cells (Auto) Urine Bacteria (Auto) RPR Titer 02/21/19 02/21/19 02/21/19 07:00 07:00 11:55 WBC RBC Hgb Hct MCV MCH MCHC RDW Plt Count MPV Sodium 142 Potassium 4.2 Chloride 106 Carbon Dioxide 29 Anion Gap 8 BUN 23.1 H Creatinine 1.3 Est GFR (CKD-EPI)AfAm 67.30 Est GFR (CKD-EPI)NonAf 58.07 POC Glucometer Random Glucose 198 H Calcium 10.1 Total Bilirubin 0.3 AST 14 L ALT 26 Alkaline Phosphatase 85 Total Protein 8.0 Albumin 3.7 Urine Color Yellow Urine Appearance Clear Urine pH 7.0 D Ur Specific [place] 1.022 Urine Protein 2+ H Urine Glucose (UA) Trace Urine Ketones Negative Urine Blood Negative Urine Nitrite Negative Urine Bilirubin Negative Urine Urobilinogen 1.0 Ur Leukocyte Esterase 1+ H Urine WBC (Auto) 6 Urine RBC (Auto) 3 Urine Casts (Auto) 9 U Epithel Cells (Auto) 2.9 Urine Bacteria (Auto) 15.5 RPR Titer Nonreactive 02/21/19 02/22/19 02/22/19 17:11 06:56 16:54 WBC RBC Hgb Hct MCV MCH MCHC RDW Plt Count MPV Sodium Potassium Chloride Carbon Dioxide Anion Gap BUN Creatinine Est GFR (CKD-EPI)AfAm Est GFR (CKD-EPI)NonAf POC Glucometer 186 190 281 Random Glucose Calcium Total Bilirubin AST ALT Alkaline Phosphatase Total Protein Albumin Urine Color Urine Appearance Urine pH Ur Specific [place] Urine Protein Urine Glucose (UA) Urine Ketones Urine Blood Urine Nitrite Urine Bilirubin Urine Urobilinogen Ur Leukocyte Esterase Urine WBC (Auto) Urine RBC (Auto) Urine Casts (Auto) U Epithel Cells (Auto) Urine Bacteria (Auto) RPR Titer 02/23/19 02/23/19 02/24/19 06:24 16:30 06:23 WBC RBC Hgb Hct MCV MCH MCHC RDW Plt Count MPV Sodium Potassium Chloride Carbon Dioxide Anion Gap BUN Creatinine Est GFR (CKD-EPI)AfAm Est GFR (CKD-EPI)NonAf POC Glucometer 266 227 190 Random Glucose Calcium Total Bilirubin AST ALT Alkaline Phosphatase Total Protein Albumin Urine Color Urine Appearance Urine pH Ur Specific [place] Urine Protein Urine Glucose (UA) Urine Ketones Urine Blood Urine Nitrite Urine Bilirubin Urine Urobilinogen Ur Leukocyte Esterase Urine WBC (Auto) Urine RBC (Auto) Urine Casts (Auto) U Epithel Cells (Auto) Urine Bacteria (Auto) RPR Titer 02/24/19 02/25/19 02/25/19 16:50 06:21 16:37 WBC RBC Hgb Hct MCV MCH MCHC RDW Plt Count MPV Sodium Potassium Chloride Carbon Dioxide Anion Gap BUN Creatinine Est GFR (CKD-EPI)AfAm Est GFR (CKD-EPI)NonAf POC Glucometer 270 235 257 Random Glucose Calcium Total Bilirubin AST ALT Alkaline Phosphatase Total Protein Albumin Urine Color Urine Appearance Urine pH Ur Specific [place] Urine Protein Urine Glucose (UA) Urine Ketones Urine Blood Urine Nitrite Urine Bilirubin Urine Urobilinogen Ur Leukocyte Esterase Urine WBC (Auto) Urine RBC (Auto) Urine Casts (Auto) U Epithel Cells (Auto) Urine Bacteria (Auto) RPR Titer 02/26/19 06:16 WBC RBC Hgb Hct MCV MCH MCHC RDW Plt Count MPV Sodium Potassium Chloride Carbon Dioxide Anion Gap BUN Creatinine Est GFR (CKD-EPI)AfAm Est GFR (CKD-EPI)NonAf POC Glucometer 209 Random Glucose Calcium Total Bilirubin AST ALT Alkaline Phosphatase Total Protein Albumin Urine Color Urine Appearance Urine pH Ur Specific [place] Urine Protein Urine Glucose (UA) Urine Ketones Urine Blood Urine Nitrite Urine Bilirubin Urine Urobilinogen Ur Leukocyte Esterase Urine WBC (Auto) Urine RBC (Auto) Urine Casts (Auto) U Epithel Cells (Auto) Urine Bacteria (Auto) RPR Titer labs noted Exam:Right hand swelling/right index finger limited rom with pain on bending. Pain to wrist on flexion. A/P Hx Gouty Arthritis Repeat labs in the morning. Feosol 325 mg po bid Motrin prn as noted consider restarting on Colcrys 0.6 mg po daily.
[2019-02-26] MEDS: FERROUS SO4 325 MG TABLET (FP) PO SCH ×2 (14:06→21:45)
[2019-02-26 15:33] LABS: EPI CELLS 3.3 /HPF (0-5/HPF); HYALINE CASTS 1 /lpf (0-8); PH,URINE 5.5 (5.0-8.0); URINE APPEARANCE CLEAR; URINE BACTERIA 17.7 /hpf (NEGATIVE); URINE BILIRUBIN NEGATIVE (NEGATIVE); URINE COLOR YELLOW; URINE GLUCOSE (UA) TRACE (NEGATIVE); URINE KETONE NEGATIVE (NEGATIVE); URINE LEUK ESTERASE 2+ (NEGATIVE); URINE NITRITE NEGATIVE (NEGATIVE); URINE PROTEIN 2+ (NEGATIVE); URINE RBC 4 /hpf (0-4); URINE UROBILINOGEN 0.2 mg/dL (0.2-1.0); URINE WBC 16 /hpf (0-5)
[2019-02-26] MEDS: THIAMINE HCL 100 MG TABLET (FP) PO SCH (21:44)
[2019-02-26] MEDS: traZODone HCL 100 MG TABLET (FP) PO SCH (21:44)
[2019-02-27] MEDS: IBUPROFEN 400 MG TABLET (FP) PO PRN ×2 (06:30→21:30)
[2019-02-27] MEDS: metFORMIN HCL 500 MG TABLET (FP) PO SCH ×2 (06:32→16:31)
[2019-02-27] MEDS ORDERED: INSULIN (NOVOLOG) ASPART 100 UNITS/ML 10ML VIAL ONE (06:35)
[2019-02-27] MEDS: INSULIN SLIDING SCALE (NOVOLOG) 1 VIAL SQ SCH ×2 (06:37→17:14)
--- NOTE | 2019-02-27 10:02 | PN ---
[facility] Progress Note Note: Patient is discharged today. Script for 30 days supply of Trazadone 100 mg/hs is electronically transmitted to [facility] [address] [place] [address]
[2019-02-27] MEDS ORDERED: ONDANSETRON *ODT* 4 MG TABLET SL PRN (10:30)
[2019-02-27] MEDS: PRENATAL VITAMINS W/ FOLIC ACID TABLET (FP) PO SCH (10:41)
[2019-02-27] MEDS: FERROUS SO4 325 MG TABLET (FP) PO SCH ×2 (10:41→21:28)
[2019-02-27] MEDS: ENALAPRIL MALEATE 10 MG TABLET (FP) PO SCH ×2 (10:41→21:28)
[2019-02-27] MEDS: NIFEdipine E.R. 30 MG TABLET (FP) PO SCH (10:41)
[2019-02-27] MEDS ORDERED: COLCHICINE 0.6 MG CAP PO ONE (11:00)
[2019-02-27 12:18] LABS: HEMATOCRIT 33.4 % (35.4-49); HEMOGLOBIN 10.5 GM/dL (11.7-16.9); MCHC 31.3 g/dl (32.0-35.9); MEAN CELL VOLUME 73.5 fl (80-96); MEAN PLT VOLUME 9.3 fl (7.5-11.1); PLATELET COUNT 246 K/MM3 (134-434); RBC 4.55 M/mm3 (4.00-5.60); RDW 16.1 % (11.9-15.9); WHITE BLOOD COUNT 8.3 K/mm3 (4.0-10.0)
[2019-02-27 12:22] LABS: ALBUMIN 3.6 g/dl (3.4-5.0); BILIRUBIN,TOTAL 0.2 mg/dL (0.2-1); BLOOD UREA NITROGEN 15.2 mg/dL (7-18); CALCIUM 9.2 mg/dL (8.5-10.1); CREATININE 1.2 mg/dL (0.55-1.3); POTASSIUM 3.7 mmol/L (3.5-5.1); TOT PROT 7.6 g/dl (6.4-8.2)
[2019-02-27] MEDS: COLCHICINE 0.6 MG CAP PO SCH ×2 (14:15→21:28)
[2019-02-27] MEDS: traZODone HCL 100 MG TABLET (FP) PO SCH (21:27)
[2019-02-27] MEDS: THIAMINE HCL 100 MG TABLET (FP) PO SCH (21:28)
--- NOTE | 2019-02-27 22:56 | PN ---
[facility] Progress Note Note: Pt c/o severe pain to right hand re:gouty flare up. Requesting pain relief and unable to feel comfortable even with motrin administered. Vital Signs - 24 hr 02/27/19 02/27/19 02/27/19 00:30 03:30 06:53 Temperature 97.3 F L Pulse Rate 102 H Respiratory 18 18 18 Rate Blood Pressure 152/87 02/27/19 10:00 Temperature Pulse Rate 106 H Respiratory Rate Blood Pressure 148/83 PE: Right Hand Swelling and redness; skin intact. A/P Gouty Arthritis Colchicine 0.6 mg po now then tid x one day Cochicine 0.6 mg po daily starting 02/28/19
[2019-02-28] MEDS: metFORMIN HCL 500 MG TABLET (FP) PO SCH ×2 (06:39→16:46)
[2019-02-28] MEDS ORDERED: INSULIN (NOVOLOG) ASPART 100 UNITS/ML 10ML VIAL ONE (06:40)
[2019-02-28] MEDS: INSULIN SLIDING SCALE (NOVOLOG) 1 VIAL SQ SCH ×2 (06:43→16:45)
[2019-02-28] MEDS: PRENATAL VITAMINS W/ FOLIC ACID TABLET (FP) PO SCH (11:01)
[2019-02-28] MEDS: COLCHICINE 0.6 MG CAP PO SCH (11:02)
[2019-02-28] MEDS: FERROUS SO4 325 MG TABLET (FP) PO SCH ×2 (11:02→21:44)
[2019-02-28] MEDS: ENALAPRIL MALEATE 10 MG TABLET (FP) PO SCH ×2 (11:02→21:44)
[2019-02-28] MEDS: NIFEdipine E.R. 30 MG TABLET (FP) PO SCH (11:03)
[2019-02-28] MEDS: IBUPROFEN 400 MG TABLET (FP) PO PRN ×2 (11:04→21:45)
[2019-02-28] MEDS: traZODone HCL 100 MG TABLET (FP) PO SCH (21:44)
[2019-02-28] MEDS: THIAMINE HCL 100 MG TABLET (FP) PO SCH (21:46)
[2019-03-01] MEDS: metFORMIN HCL 500 MG TABLET (FP) PO SCH ×2 (06:35→16:31)
[2019-03-01] MEDS: IBUPROFEN 400 MG TABLET (FP) PO PRN ×3 (06:38→21:54)
[2019-03-01] MEDS: INSULIN SLIDING SCALE (NOVOLOG) 1 VIAL SQ SCH ×2 (07:40→16:31)
[2019-03-01] MEDS: ENALAPRIL MALEATE 10 MG TABLET (FP) PO SCH ×2 (10:36→21:53)
[2019-03-01] MEDS: NIFEdipine E.R. 30 MG TABLET (FP) PO SCH (10:36)
[2019-03-01] MEDS: FERROUS SO4 325 MG TABLET (FP) PO SCH ×2 (10:36→21:53)
[2019-03-01] MEDS: PRENATAL VITAMINS W/ FOLIC ACID TABLET (FP) PO SCH (10:36)
[2019-03-01] MEDS: COLCHICINE 0.6 MG CAP PO SCH (10:37)
[2019-03-01] MEDS: THIAMINE HCL 100 MG TABLET (FP) PO SCH (21:53)
[2019-03-01] MEDS: traZODone HCL 100 MG TABLET (FP) PO SCH (21:53)
[2019-03-02] MEDS: IBUPROFEN 400 MG TABLET (FP) PO PRN (06:26)
[2019-03-02] MEDS: metFORMIN HCL 500 MG TABLET (FP) PO SCH (06:26)
[2019-03-02] MEDS: INSULIN SLIDING SCALE (NOVOLOG) 1 VIAL SQ SCH (06:53)
[2019-03-02 07:05] VITALS: BP 147/98; PULSE 105; TEMP 98
--- NOTE | 2019-03-02 10:24 | DS ---
[facility] Rehab Discharge Summary - [facility] Rehab Discharge Summary Admission Date: 02/20/19 Discharge Date: 03/02/19 - History Present History: Alcohol dependence Additional Comments: Pt is a 63 y/o male with a hx of LD admitted to rehab and scheduled for discharge today. Pt has been referred to [facility] OP for CD aftercare. Pt has been instructed to follow up with CD aftercare with [facility] at [address] [place] [address] for primary care management. Pertinent Past History: Gout HTN DM Anemia Hx Seizure - Discharge Physical Exam Vital Signs: Vital Signs Temperature 98.0 F 03/02/19 07:04 Pulse Rate 105 H 03/02/19 07:04 Respiratory Rate 18 03/02/19 07:04 Blood Pressure 147/98 03/02/19 07:04 O2 Sat by Pulse Oximetry (%) Alert o x 3 nad oob ambulating with steady gait cardiac:s1 s2,rrr lungs:cta,zelda. abdomen:+bs,++fatty,nt extremities/skin:no edema,full ROM/weight bearing;skin intact. - Treatment Discharge Condition: Discharge condition good Hospital Course: Rehabilitated safely and responded well CD aftercare referral accepted - Medication Discharge Medications: Ambulatory Orders traZODone HCL [Desyrel -] 100 mg PO HS #30 tablet 02/27/19 Colchicine [Colcrys] 0.6 mg PO DAILY #15 cap 03/02/19 Ferrous Sulfate [Feosol] 325 mg PO DAILY #14 ud 03/02/19 - Medication-Assisted Treatment (MAT) Medication-Assisted Treatment (MAT): No - Discharge Instructions Diet, activity, other medical instructions: Diet: Activity: Other medical instructions:Follow up with primary care at [facility], [address] [place] [address] for medical management within 1-2 weeks after discharge. Follow up with CD aftercare referral as recommended and scheduled. - Diagnosis (1) Alcohol dependence Status: Chronic (2) Cannabis dependence Status: Chronic (3) Gout attack Status: Chronic Qualifiers: Gout site: hand Encounter type: initial encounter (4) Anemia Status: Chronic Qualifiers: Anemia type: folate deficiency Folate deficiency anemia type: other folate deficiency Qualified Code(s): D52.8 - Other folate deficiency anemias (5) Diabetes mellitus Status: Chronic Qualifiers: Diabetes mellitus type: type 2 Diabetes mellitus skilled nursing insulin use: without petroleum terminal plant operator use Diabetes mellitus complication status: without complication Qualified Code(s): E11.9 - Type 2 diabetes mellitus without complications (6) Essential (primary) hypertension Status: Chronic (7) Seizure Status: Suspected - Follow-up Referral Minutes to complete discharge: 25 - AMA Did Patient Leave Against Medical Advice: No Additional Comments: 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 I will send Colchicine 0.6 mg po daily #15 and Feosol 325 mg po daily #14 to the pharmacy.
[2019-03-02] MEDS: ENALAPRIL MALEATE 10 MG TABLET (FP) PO SCH (10:36)
[2019-03-02] MEDS: PRENATAL VITAMINS W/ FOLIC ACID TABLET (FP) PO SCH (10:36)
[2019-03-02] MEDS: NIFEdipine E.R. 30 MG TABLET (FP) PO SCH (10:37)
[2019-03-02] MEDS: COLCHICINE 0.6 MG CAP PO SCH (10:37)
[2019-03-02] MEDS: FERROUS SO4 325 MG TABLET (FP) PO SCH (10:37)
== END 2019-03-02 11:55 | disposition home or self-care (01) | DRG 772 ==
LOC: YASAS 13:06 → Y5N 17:40
PROVIDERS: ADMIT Neuromusculoskeletal Medicine & OMM; ATTEND Neuromusculoskeletal Medicine & OMM
PROC: HZ42ZZZ Group Counseling for Substance Abuse Treatment, Cognitive-Behavioral (ICD-10-PCS; principal; 2019-02-20)
DX: F10.20 Alcohol dependence, uncomplicated (principal); F12.20 Cannabis dependence, uncomplicated; F10.282 Alcohol dependence with alcohol-induced sleep disorder; F17.210 Nicotine dependence, cigarettes, uncomplicated; D64.9 Anemia, unspecified; I10 Essential (primary) hypertension; E11.9 Type 2 diabetes mellitus without complications; Z79.84 Long term (current) use of oral hypoglycemic drugs; M10.9 Gout, unspecified; Z86.69 Personal history of other diseases of the nervous system and sense organs
CPT/HCPCS: 36415; 80053; 81003; 82962; 85027; 86593